=== PATIENT | male | born 1985 | race Caucasian/White ===

== ENCOUNTER → 2020-09-18 | Outpatient (REF) ==
--- NOTE | 2020-09-18 11:03 | REP ---
INDICATION: LEFT SHOULDER PAIN COMPARISON: None. TECHNIQUE: Internal rotation, external rotation, and Y view. FINDINGS: No acute fracture or dislocation. The acromioclavicular and glenohumeral joints are intact. No periarticular calcifications or degenerative changes are appreciated. Sub acromial space is normal. Surrounding soft tissues are unremarkable. IMPRESSION: Normal left shoulder radiographs. <Electronically signed by Ranjan Hood > 09/18/20 [id number]
== END ==
LOC: M PLAIMG 10:20
PROVIDERS: ATTEND Internal Medicine
DX: M25.512 Pain in left shoulder (principal)

== ENCOUNTER → 2021-09-03 | Outpatient (REF) | LOC: M LAB 13:46 | PROVIDERS: ATTEND Nurse Practitioner Adult Health | DX: Z02.1 Encounter for pre-employment examination (principal) ==